=== PATIENT | male | born 1980 | race Caucasian/White ===

== ENCOUNTER 2025-04-26 01:39 | Emergency (ER) | payer BC ==
[2025-04-26] MEDS: Ketorolac 30 MG/ML SDV IVPUSH ONE (02:03)
[2025-04-26] MEDS: Sodium Chloride 0.9% 1,000 ML IV ONE (02:03)
[2025-04-26 02:10] LABS: BASOPHILS PERCENT AUTO 0.3 % (0.3-3.8); EOSINOPHILS ABSOLUTE AUTO 0.1 x10-3/uL (0.0-0.6); EOSINOPHILS PERCENT AUTO 0.8 % (0.1-6.8); HEMATOCRIT 43.4 % (38.3-50.1); HEMOGLOBIN 15.1 g/dL (12.9-17.7); LYMPHOCYTES ABSOLUTE AUTO 0.9 x10-3/uL (0.5-4.5); LYMPHOCYTES PERCENT AUTO 8.2 % (15.8-45.3); MEAN CORPUSCULAR HEMOGLOBIN 30.3 pg (27.0-33.3); MEAN CORPUSCULAR HGB CONC 34.7 g/dL (28.7-35.3); MEAN CORPUSCULAR VOLUME 87.3 fL (80.8-98.7); MONOCYTES ABSOLUTE AUTO 0.8 x10-3/uL (0.0-1.2); MONOCYTES PERCENT AUTO 7.1 % (5.5-15.2); NEUTROPHILS ABSOLUTE AUTO 9.1 x10-3/uL (1.7-6.9); NEUTROPHILS PERCENT AUTO 83.6 % (40.3-71.8); PLATELET COUNT,PLT 355 x10(3)uL (117-477); RED BLOOD CELL COUNT 4.97 x10(6)uL (3.90-5.90); WHITE BLOOD CELL COUNT,WBC 10.9 x10-3/uL (3.2-10.1)
[2025-04-26 02:13] LABS: BLOOD UREA NITROGEN,BUN 11 mg/dL (7-18); CALCIUM 9.1 mg/dL (8.6-10.2); CARBON DIOXIDE,CO2 30 mmol/L (21-32); CHLORIDE,CL 99 mmol/L (100-110); CREATININE 1.1 mg/dL (0.70-1.30); ESTIMATED GFR 85 mL/min (>60); GLUCOSE RANDOM 133 mg/dL (80-116); POTASSIUM,K 3.8 mmol/L (3.5-5.3); SODIUM,NA 136 mmol/L (135-145)
[2025-04-26] MEDS: Iopamidol 755 Mg/ML 100 ML Bottle IV SCH (02:23)
[2025-04-26 02:24] LABS: A/G RATIO 1.3; ALBUMIN 4.4 g/dL (3.5-5.2); ALKALINE PHOSPHATASE 112 IU/L (56-112); BILIRUBIN TOTAL 3.8 mg/dL (0.1-1.3); PROTEIN TOTAL,TP 7.7 g/dL (6.0-8.0)
[2025-04-26 02:25] LABS: ALANINE AMINOTRANSFERASE,ALT 830 U/L (12-36); ASPARTATE AMNIOTRANSFERASE,AST 818 IU/L (5-25)
[2025-04-26] MEDS: HYDROmorphone 2 MG/ML SDV IVPUSH ONE (02:44)
== END 2025-04-26 03:07 ==
LOC: FB.ED 01:39
DX: K81.9 Cholecystitis, unspecified (principal); F17.210 Nicotine dependence, cigarettes, uncomplicated
CPT/HCPCS: 36415; 74177; 80053; 83690; 85025; 96361; 96374; 96375; 99285; J1171; J1885; J7030; Q9967